=== PATIENT | male | born 1950 | race Caucasian/White ===

== ENCOUNTER 2017-04-01 08:19 | Outpatient (CLI) | payer MEDICARE ==
[2017-04-01] MEDS ORDERED: Iopamidol 250 51% 100 ML VIAL FS ONE (10:04)
--- NOTE | 2017-04-01 11:06 | CT ---
CONTRAST ENHANCED CT OF CHEST CONTRAST ENHANCED CT OF THE ABDOMEN AND PELVIS: History: Malignant neoplasm of kidney. Technique: Contrast enhanced CT images of the chest, abdomen, and pelvis performed. FINDINGS: The mediastinum is unremarkable. Sternotomy changes are seen. A prosthetic aortic valve was seen. There are three calcified granulomas in the right chest, one in the right upper lobe, one in the righ t middle lobe and a third calcified granuloma in the right lower lobe. There is also a noncalcified s oft tissue lesion seen in the right middle lobe seen on Image 30. Follow up CT in 3-4 months is recom mended to evaluate for interval change as unfortunately, the previous old CT images of the chest are not available. The left lung is well aerated. No evidence of mediastinal or hilar lymphadenopathy is seen. The liver, spleen, gallbladder and pancreas are unremarkable. Adrenal glands are unremarkable. The ri ght kidney is unremarkable. A small area of cortical thinning is seen in the lower pole of the left k idney possibly representing surgical resection of the left renal lesion. Correlate with surgical hist ory. Small surgical david are also seen in the left perirenal medial aspect region. Anterior incisi on is seen. Numerous descending sigmoid colon diverticula are noted. Small bowel is unremarkable. A normal appendix is seen. IMPRESSION: 1. Single soft tissue nodule in the right middle lobe of the lung. 2. Post-surgical changes seen adjacent to the left kidney. 3. Descending and sigmoid colonic diverticulosis. POS: [facility]
== END 2017-04-01 08:20 | disposition home or self-care (01) ==
LOC: CT 08:19
PROVIDERS: ATTEND Internal Medicine Hematology & Oncology
DX: C18.9 Malignant neoplasm of colon, unspecified (principal); C64.9 Malignant neoplasm of unspecified kidney, except renal pelvis; R91.1 Solitary pulmonary nodule; K57.30 Diverticulosis of large intestine without perforation or abscess without bleeding; Z98.890 Other specified postprocedural states
CPT/HCPCS: 71260; 74177

== ENCOUNTER 2017-06-21 08:49 | Outpatient (CLI) | payer MEDICARE ==
[~2017-06-21 08:49] MED LIST: Gadobenate Dimeglumine 529 MG/1 ML (20ML VIAL) ONE
--- NOTE | 2017-06-21 12:53 | MRI ---
MRI BRAIN WITH AND WITHOUT CONTRAST: HISTORY: Followup meningioma. COMPARISON: MRI brain, dated 05/27/2016. TECHNIQUE: Multiplanar, multisequential imaging of the brain obtained. Post contrast images obtained with the a dministration of 20 mL of MultiHance IV. FINDINGS: The ventricles remain normal in size and position. On the FLAIR sequence, there are a few scattered white matter hyperintensities, consistent with very mild chronic ischemic white matter change. These findings are stable from the prior study. No restricted diffusion. There is an extraaxial mass along the right convexity, at the location of the sylvian fissure. This mass exhibits low T2 signal and relatively isointense T1 signal. It shows diffuse enhancement. It i s unchanged in size and appearance. It continues to measure approximately 2.2 cm in AP dimension on the axial plane. It measures 2.5 cm craniocaudal on the coronal plane. These measurements are stabl e from the prior study. Cerebral arteries and basilar arteries show flow voids. The dural venous sinuses appear patent. There continue to be subcutaneous nodules, which were described previously, possibly representing mckenzie aceous cysts. These are stable. IMPRESSION: 1. Meningioma along the right convexity is stable in size and appearance. 2. Mild chronic ischemic white matter changes appear stable. POS: [facility]
== END 2017-06-21 08:50 | disposition home or self-care (01) ==
LOC: TBSIIMAG 08:49
PROVIDERS: ATTEND Surgery
DX: D32.0 Benign neoplasm of cerebral meninges (principal)
CPT/HCPCS: 70553; A9579

== ENCOUNTER 2017-08-06 08:38 | Outpatient (CLI) | payer MEDICARE ==
[2017-08-06] MEDS ORDERED: ISOVUE-370 76%-LOCM 1 ML ONE (16:24)
== END 2017-08-06 08:39 | disposition home or self-care (01) ==
LOC: BICCT 08:38
PROVIDERS: ATTEND Internal Medicine Hematology & Oncology
DX: Z08 Encounter for follow-up examination after completed treatment for malignant neoplasm (principal); Z85.038 Personal history of other malignant neoplasm of large intestine; Z85.528 Personal history of other malignant neoplasm of kidney; R91.1 Solitary pulmonary nodule; J84.10 Pulmonary fibrosis, unspecified; I89.8 Other specified noninfective disorders of lymphatic vessels and lymph nodes
CPT/HCPCS: 71260

== ENCOUNTER 2018-01-26 08:08 | Outpatient (CLI) | payer MEDICARE ==
--- NOTE | 2018-01-26 10:39 | CT ---
PRE AND POST CONTRAST ENHANCED CT IMAGES OF THE CHEST, ABDOMEN, AND PELVIS: Date: 01-26-18 Comparison: 04-01-17 Technique: Contrast enhanced CT images of the chest, abdomen, and pelvis were obtained. FINDINGS: Mediastinal surgical clips seen. Sternotomy wires noted. There is calcification seen in the aortic valve. No evidence of mediastinal lymphadenopathy seen. A calcified mediastinal lymph node is present. Calcified granuloma seen in the right middle lobe. There is a small soft tissue nodule in the right middle lobe measuring approximately 6 mm, unchanged since the previous comparison exam. The liver and spleen are unremarkable. The gallbladder and pancreas unremarkable. Adrenal glands unre markable. Surgical changes seen in the left kidney. No evidence of renal masses or lesions seen. No evidence of periaortic lymphadenopathy seen. Midline anterior abdominal wall surgical changes seen. The small bowel is unremarkable. A normal appendix is seen. Colonic diverticulosis is present without evidence of diverticulitis. No evidence of osseous lesions seen. IMPRESSION: 1. Post-surgical changes without definite evidence of metastatic disease seen. POS: [facility]
[2018-01-26] MEDS ORDERED: ISOVUE-370 76%-LOCM 1 ML ONE (12:46)
== END 2018-01-26 08:09 | disposition home or self-care (01) ==
LOC: BICCT 08:08
PROVIDERS: ATTEND Internal Medicine Hematology & Oncology
DX: C18.9 Malignant neoplasm of colon, unspecified (principal); C64.9 Malignant neoplasm of unspecified kidney, except renal pelvis; Z98.890 Other specified postprocedural states
CPT/HCPCS: 71260; 74177; 82565

== ENCOUNTER 2018-10-21 09:03 | Outpatient (CLI) | payer MEDICARE ==
[2018-10-21] MEDS ORDERED: ISOVUE-370 76%-LOCM 1 ML ONE (11:14)
--- NOTE | 2018-10-21 13:18 | CT ---
CT Chest Abd Pelvis W Con History: Colon and renal cancer. Comparison: CT chest abdomen pelvis January 2018 Findings: Calcified granuloma right upper lobe. Beneficial nodule along the right minor fissure measu res 6 cm, unchanged. Calcified granuloma right middle lobe. No suspicious pulmonary nodule. No effusion. No pneumothorax. No significant change in the left paratracheal lymph node measuring 6 mm short axis. No new adenopath y. Few calcified right peritracheal and subcarinal lymph nodes. No internal mammary nor axillary adenopathy. A few calcified granulomas of the spleen. Pancreas is un remarkable. Partial left inferior nephrectomy. No abnormal soft tissue nodularity to be suggests residual or recu rrent disease. No hydronephrosis. No abnormal renal enhancing mass. Extensive diverticular disease of the sigmoid colon without active current inflammation. Large midlin e scar. The transverse colon is somewhat lower in the abdomen than normal with the small bowel in the superior abdomen, likely chronic internal hernia from abdominal surgery. This has no clinical sig nificance. Liver, gallbladder, portal vein are all patent. Multiple midline sternotomy wires. Advanced facet arthrosis lower lumbar spine. No suspicious osteoly tic or osteoblastic lesions. Impression: No evidence for disease recurrence or metastasis.
== END 2018-10-21 09:04 | disposition home or self-care (01) ==
LOC: BICCT 09:03
PROVIDERS: ATTEND Internal Medicine Hematology & Oncology
DX: Z08 Encounter for follow-up examination after completed treatment for malignant neoplasm (principal); Z85.038 Personal history of other malignant neoplasm of large intestine; Z85.528 Personal history of other malignant neoplasm of kidney
CPT/HCPCS: 71260; 74177; 82565

== ENCOUNTER 2018-12-14 09:20 | Outpatient (CLI) | payer MEDICARE ==
--- NOTE | 2018-12-14 11:22 | MRI ---
MRI Brain W WO Con: 12/14/2018 12:00 AM CLINICAL HISTORY: Meningioma, follow-up. COMPARISON: 06/21/2017 FINDINGS: Extra axial spaces: Extra-axial mass is redemonstrated, described in further detail below. Acute infarction: None. Ventricular system: Normal in size and morphology for the patient's age. Basal cisterns: Normal. Cerebral parenchyma: Microvascular ischemic changes. Midline shift: None. Cerebellum: Normal. Brainstem: Normal. Paranasal sinuses:Scattered mucosal thickening, most pronounced within the sphenoid sinus. Mass: Stable enhancing extra-axial mass overlying the right convexity, 2.3 cm in diameter, which agai n demonstrates a broad dural base and a dural tail. Stable signal alteration posterior to the cerebellum, consistent with pacchionian granulation. There is also a stable, nonspecific small hyperintensity of the left temporal calvarium, stable. Cutaneous lesions of the scalp, bilaterally, are again demonstrated. IMPRESSION: Stable extra-axial mass overlying the right convexity, most consistent with meningioma. Transcribed Date/Time: 12/14/2018 11:32 AM
== END 2018-12-14 09:21 | disposition home or self-care (01) ==
LOC: TBSIIMAG 09:20
PROVIDERS: ATTEND Surgery
DX: D32.9 Benign neoplasm of meninges, unspecified (principal)
CPT/HCPCS: 70553; 82565

== ENCOUNTER 2019-03-07 09:05 | Outpatient (CLI) | payer MEDICARE ==
--- NOTE | 2019-03-07 11:48 | MRI ---
MRI RIGHT KNEE: Date: 03/07/19 PROVIDED CLINICAL HISTORY: Right knee pain. FINDINGS: The anterior cruciate ligament, posterior cruciate ligament, medial collateral ligament, and lateral collateral ligamentous complex demonstrate an intact MR appearance, as does the extensor mechanism. There is a near full thickness to full thickness radial tear involving the posterior horn of the medi al meniscus as it approaches the meniscal root. The lateral meniscus demonstrates no evidence for tea r. There is extensive full thickness articular cartilage loss involving the central weightbearing portio ns of the medial femorotibial joint. There is surface irregularity involving the patellar articular c artilage. There is a large knee joint effusion. No focal concerning regional marrow or muscular signal abnormality is evident. IMPRESSION: 1. Posterior root tear of the medial meniscus. 2. Advanced medial femorotibial articular chondrosis. 3. Large knee joint effusion. POS: [facility]
== END 2019-03-07 09:06 | disposition home or self-care (01) ==
LOC: BICMRI 09:05
PROVIDERS: ATTEND Family Medicine
DX: M25.461 Effusion, right knee (principal); S83.221A Peripheral tear of medial meniscus, current injury, right knee, initial encounter; M25.861 Other specified joint disorders, right knee

== ENCOUNTER 2019-05-05 08:35 | Outpatient (CLI) | payer MEDICARE ==
--- NOTE | 2019-05-05 11:34 | CT ---
EXAM: CT chest, abdomen, and pelvis with IV contrast: HISTORY: Colon cancer and renal cancer. Follow-up evaluation. COMPARISON: 10/21/2018 FINDINGS: CT THORAX: Lungs: Previously described 6 mm perifissural nodule along the right minor fissure is again seen and stable. Scattered calcified granulomata are again seen on the right. No additional parenchymal pulmonary nodule or mass is seen. Pleura: No pleural effusion. Lymph nodes: Calcified mediastinal and right hilar lymph nodes are seen related to prior granulomatou s disease. No enlarged lymph nodes are present. Mediastinum: . Postsurgical changes related to CABG and aortic valve replacement. Vascular calcificat ions are seen in the thoracic aorta. Chest wall: No abnormalities CT ABDOMEN AND PELVIS: Liver: Few punctate calcified granulomata are seen. No hepatic lesions are identified. Gallbladder: Within normal limits. \ Pancreas: Within normal limits. Spleen:Small splenic granulomata are again noted. Adrenal glands: Within normal limits. Kidneys: Few subcentimeter too small to characterize hypodense lesions are again seen in the right ki dney. Postsurgical changes inferior pole left kidney are again noted. Urinary Bladder: Mostly decompressed but otherwise grossly within normal limits. Reproductive organs: Within normal limits for patient's age. Bowel: There is extensive colonic diverticulosis greatest involving the descending and sigmoid colon. The cecum is in the midline of the abdomen with transverse colon positioned more lower than typically expected. These findings may be related to prior surgery. Loops of small bowel are normal i n caliber. Adenopathy:No lymphadenopathy within the abdomen or pelvis. Peritoneum: No free fluid or fluid collection is seen. No free intraperitoneal gas is identified. Abdominal wall: Midline surgical scar is seen in the subcutaneous soft tissues. Osseous structures: No suspicious lytic or sclerotic osseous lesions are identified. IMPRESSION: No CT evidence of metastatic disease.
[2019-05-05] MEDS ORDERED: Iopamidol-370 76% 500 ML 1 ML ONE (15:19)
== END 2019-05-05 08:36 | disposition home or self-care (01) ==
LOC: BICCT 08:35
PROVIDERS: ATTEND Internal Medicine Hematology & Oncology
DX: C64.9 Malignant neoplasm of unspecified kidney, except renal pelvis (principal); C18.9 Malignant neoplasm of colon, unspecified
CPT/HCPCS: 71260; 74177; 82565; Q9967

== ENCOUNTER 2019-10-17 09:14 | Outpatient (CLI) | payer MEDICARE ==
--- NOTE | 2019-10-17 10:16 | CT ---
CT OF THE CHEST, ABDOMEN AND PELVIS WITH IV CONTRAST INDICATION: History of colon cancer with metastatic lesion to the left kidney COMPARISON: CT of the chest, abdomen and pelvis dated May 05, 2009, October 21, 2018, January 26 and April 01, 2017. FINDINGS: CHEST: Lungs: The noncalcified pulmonary nodule measuring 6 mm, adjacent to the undersurface of the right mi nor fissure, within the right middle lobe, is stable. The scattered calcified granuloma are similar appearing. No new suspicious pulmonary nodule is evident. Pleural space: No effusion. Mediastinum: There are coronary artery and thoracic aortic calcifications. There are stable post-CABG change. There are calcified lymph nodes within the mediastinum and right hilar region. There is a loop recorder overlying left chest wall. Axilla: No pathologically enlarged lymph nodes. ABDOMEN: Liver: No suspicious focal hepatic lesion is evident. Gallbladder: Normal appearing. Pancreas: Normal. Adrenal glands: Normal. Spleen: Calcified granuloma in the spleen. Kidneys and ureters: There is stable postprocedural change of only for pole of the left kidney. No re current mass is evident. Right kidney is normal-appearing. Vasculature: There are mild vascular calcifications seen involving the visualized vasculature. Lymph nodes:No lymphadenopathy. Free fluid in abdomen:No free fluid is evident. PELVIS: Small and large bowel: There is postprocedural change of partial colectomy. There is colocolonic anas tomosis within the lower midline abdomen. There are scattered diverticula involving the colon. There is a normal appendix in the right lower quadrant of the abdomen. Small bowel is normal-appearin g. Appendix:Normal Bladder: Normal. Rectal and perirectal soft tissues:Normal. Reproductive structures: Normal. Free fluid in pelvis: No free fluid is evident. Lymphadenopathy pelvis: No lymphadenopathy is evident. Osseous structures: No acute osseous abnormality. No destructive osteolytic or osteoblastic lesion i s identified. There is scattered degenerative and osteoarthritic changes. Soft tissues:Normal. IMPRESSION: 1. No evidence of recurrent disease or metastatic disease.
[2019-10-17] MEDS ORDERED: Iopamidol-370 76% 500 ML 1 ML ONE (15:29)
== END 2019-10-17 09:15 | disposition home or self-care (01) ==
LOC: BICCT 09:14
PROVIDERS: ATTEND Internal Medicine Hematology & Oncology
DX: C18.9 Malignant neoplasm of colon, unspecified (principal); C64.9 Malignant neoplasm of unspecified kidney, except renal pelvis
CPT/HCPCS: 71260; 74177; 82565; Q9967

== ENCOUNTER 2020-04-05 09:15 | Outpatient (CLI) | payer MEDICARE ==
--- NOTE | 2020-04-05 11:17 | CT ---
EXAM: CT chest, abdomen, and pelvis with IV contrast: HISTORY: 6 month follow-up evaluation secondary to colon cancer. Malignant neoplasm of kidney. COMPARISON: 10/17/2019 FINDINGS: CT THORAX: Lungs: The pleural-based right middle lobe pulmonary nodule is again seen and unchanged in size measu ring 6 mm. This nodule is also unchanged compared to study in 2017. There has been interval development of a 5 mm right lower lobe pulmonary nodule located laterally near the right lateral cost ophrenic angle. No additional noncalcified pulmonary nodule is seen in the lungs bilaterally. There are scattered calcified granulomata again noted on the right. Pleura: No pleural effusion. Lymph nodes: There are calcified mediastinal and right hilar lymph nodes related to prior granulomato us disease. No enlarged mediastinal or hilar lymph nodes are seen. Mediastinum: Postoperative changes related to CABG are again noted. Metallic densities are seen at th e level of the aortic valve likely due to prior aortic valve replacement. Vascular calcifications are seen in the thoracic aorta. Chest wall: A metallic loop recording device is seen in the subcutaneous soft tissues anterior left c hest. CT ABDOMEN AND PELVIS: Liver: Calcified granuloma seen in the dome of the liver. Liver otherwise has a normal appearance and no focal lesion is seen in the liver. Gallbladder: Within normal limits. \ Pancreas: Within normal limits. Spleen:Splenic granulomata are visualized. Adrenal glands: Within normal limits. Kidneys: There is a low-density lesion seen in the inferior pole left kidney measuring 2.1 cm. This w as also present on the prior exam. This area was much smaller in size on study on PET/CT scan on 02/05/2016. This does not demonstrate an attenuation coefficient compatible with a simple cyst. This may represent a hyperdense cyst, but this is larger in size and previously measured approximately 1.1 cm. This may represent mild interval enlargement of a hyperdense renal cyst. However, follow-up M RI abdomen is recommended in 3-6 months for further evaluation and characterization. Postoperative changes inferior pole left kidney are again seen. A stable subcentimeter too small to characterize hy podense lesion is seen in the superior pole right kidney. Urinary Bladder: The urinary bladder is unremarkable. Reproductive organs: Within normal limits for patient's age. Vessels: Vascular calcifications seen in the abdominal aorta. Bowel: Partial colectomy is again noted with colonic colonic anastomosis in the lower midline of the abdomen. Colonic diverticulosis is present. Loops of small bowel are normal in caliber. Appendix is visualized and normal in caliber. Lymphadenopathy:No enlarged lymph nodes are seen in the abdomen or pelvis by CT size criteria. Peritoneum: No free fluid or fluid collection is seen. No free intraperitoneal gas is identified. Abdominal wall: Midline scarring is again present in the anterior abdominal wall. Osseous structures: Few Schmorl's nodes are seen within the upper lumbar vertebral bodies. Degenerati ve changes are seen in the spine. No suspicious lytic or sclerotic osseous lesions are identified. IMPRESSION: 1. Interval development of a 5 mm right lower lobe pulmonary nodule. Short interval follow-up examina tion in 4-6 months is recommended. 2. Hypodense lesion in the inferior pole left kidney which is larger in size compared to prior PET/CT scan in 2016. This lesion demonstrated increased density on that exam. This may represent enlargement of a Bosniak type II renal cystic lesion, but follow-up MRI in 3-6 months is recommended for further characterization and evaluation. 3. No evidence of lymphadenopathy in the chest, abdomen, or pelvis. 4. Additional findings as described above.
[2020-04-05] MEDS ORDERED: Iopamidol-370 76% 500 ML 1 ML ONE (13:19)
== END 2020-04-05 09:16 | disposition home or self-care (01) ==
LOC: BICCT 09:15
PROVIDERS: ATTEND Internal Medicine Hematology & Oncology
DX: C18.9 Malignant neoplasm of colon, unspecified (principal); C64.9 Malignant neoplasm of unspecified kidney, except renal pelvis; R91.1 Solitary pulmonary nodule; N28.9 Disorder of kidney and ureter, unspecified
CPT/HCPCS: 36415; 71260; 74177; 82378; 82565; Q9967

== ENCOUNTER 2020-07-31 09:33 | Outpatient (CLI) | payer MEDICARE | END 2020-07-31 09:34 | disposition home or self-care (01) | LOC: TBSIIMAG 09:33 | PROVIDERS: ATTEND Surgery | DX: D33.2 Benign neoplasm of brain, unspecified (principal); I67.82 Cerebral ischemia; R22.0 Localized swelling, mass and lump, head; G93.9 Disorder of brain, unspecified; Z85.038 Personal history of other malignant neoplasm of large intestine; Z85.53 Personal history of malignant neoplasm of renal pelvis | CPT/HCPCS: 70553 ==

== ENCOUNTER 2020-08-12 15:16 | Outpatient (CLI) | payer MEDICARE ==
[2020-08-12 18:32] LABS: Hemoglobin 13.5 g/dL (13.5-17.5); Mean Corpuscular HGB CONC 33.9 g/dL (32.0-36.0); Mean Corpuscular Hemoglobin 29.8 pg (27.0-33.0); Mean Corpuscular Volume 87.9 fl (81.2-95.1); Mean Platelet Volume 12.6 fl (7.4-10.4); Platelet Count 185 10x3/uL (150-450); RBC Distribution Width 13.2 % (11.5-14.5); Red Blood Cell (RBC) Count 4.53 10x6/uL (4.32-5.72)
[2020-08-12 18:43] LABS: PTT 26.1 sec (22.0-33.0); Prothrombin Time 10.9 sec (9.5-12.1)
[2020-08-12 19:09] LABS: Anion Gap 15 mmol/L (10-20); BUN (Urea Nitrogen) 13 mg/dL (8.4-25.7); Calc. Creatinine Clearance 0 mL/min (70-130); Calcium 9.5 mg/dL (7.8-10.44); Carbon Dioxide 26 mmol/L (23-31); Chloride 101 mmol/L (98-107); Glucose 178 mg/dL (80-115); Potassium 3.6 mmol/L (3.5-5.1); Sodium 138 mmol/L (136-145)
[2020-08-13 06:59] LABS: SARS-CoV-2 PCR by NAA Not Detected (NotDetected)
== END 2020-08-12 15:17 | disposition home or self-care (01) ==
LOC: LABBT 15:16
PROVIDERS: ATTEND Surgery
DX: Z01.818 Encounter for other preprocedural examination (principal); M89.9 Disorder of bone, unspecified; Z20.822 Contact with and (suspected) exposure to COVID-19
CPT/HCPCS: 80048; 85027; 85610; 85730; U0003; U0005; 87635; 93005; 93010

== ENCOUNTER 2020-08-12 15:30 | Inpatient (IN) | payer MEDICARE ==
[2020-08-14 10:22] VITALS: BMI 31.8
[2020-08-15] MEDS ORDERED: Fentanyl 100 MCG/2 ML VIAL ONE ×2 (06:46→09:54)
[2020-08-15] MEDS ORDERED: Thrombin 5000 UNITS/5 ML VIAL ONE (07:07)
[2020-08-15] MEDS ORDERED: Bacitracin Zinc Ointment 30 gm TUBE ONE (07:07)
[2020-08-15] MEDS ORDERED: Lidocaine 1% PF 5 ML VIAL ONE (07:42)
[2020-08-15] MEDS ORDERED: PROPOFOL 200 MG/20 ML VIAL ONE (07:42)
[2020-08-15] MEDS ORDERED: Dexamethasone 20 MG/5 ML VIAL ONE (07:42)
[2020-08-15] MEDS ORDERED: ePHEDrine Sulfate 50 MG/10 ML VIAL ONE (07:42)
[2020-08-15] MEDS ORDERED: Ondansetron PF 4 MG/2 ML Vial ONE (07:42)
[2020-08-15] MEDS ORDERED: PHENYLEPHRINE-NS 100 MCG/ML 10 ML SYRINGE ONE (07:42)
[2020-08-15] MEDS ORDERED: Rocuronium Bromide 10 MG/ML (10ML VIAL) ONE (07:42)
[2020-08-15] MEDS ORDERED: Glycopyrrolate 0.2 MG/ML 5 ML SYRINGE ONE (07:42)
[2020-08-15] MEDS ORDERED: hydrALAZINE 20 MG/ML VIAL SLOW IVP PRN (09:43)
[2020-08-15] MEDS ORDERED: Ondansetron PF 4 MG/2 ML Vial IVP PRN (09:43)
[2020-08-15] MEDS ORDERED: Acetaminophen 325 MG TAB PO PRN (09:43)
[2020-08-15] MEDS ORDERED: Morphine 2 MG/ML VIAL SLOW IVP PRN (09:43)
[2020-08-15] MEDS ORDERED: Acetaminophen/Codeine 30-300mg Tablet PO PRN (09:50)
[2020-08-15] MEDS ORDERED: traMADol HCl 50 MG TAB PO PRN (09:50)
[2020-08-15] MEDS ORDERED: Promethazine HCl 25 MG/ML VIAL IM PRN (09:51)
[2020-08-15] MEDS ORDERED: Mag-Al 1200 mg/1200 mg/30 ML UDCUP PO PRN (09:51)
[2020-08-15] MEDS ORDERED: Promethazine HCl 25 MG/ML VIAL SLOW IVP PRN (09:56)
[2020-08-15] MEDS ORDERED: Ondansetron HCl/PF 4 MG/2 ML Vial IVP PRN (09:56)
[2020-08-15] MEDS: CEFAZOLIN 2 GM in Premix Bag 1 BAG IVPB SCH ×2 (14:32→21:20)
[2020-08-15] MEDS: HYDROcodone/Acetaminophen 7.5/325 mg Tablet PO PRN (14:32)
[2020-08-15] MEDS: Sodium Chloride 0.9% 1,000 ML IV SCH (15:46)
[2020-08-15] MEDS: metFORMIN 500 MG TAB PO SCH (17:16)
[2020-08-15] MEDS ORDERED: Cepastat Lozenges 1 LOZ PO PRN (18:39)
[2020-08-15] MEDS ORDERED: Amlodipine 5 MG TAB PO SCH (21:00)
[2020-08-15] MEDS ORDERED: Atorvastatin Calcium 40 MG TAB PO SCH (21:00)
[2020-08-15] MEDS: Carvedilol 25 MG TAB PO SCH (21:20)
[2020-08-16 03:45] VITALS: TEMP 97.8
[2020-08-16] MEDS: CEFAZOLIN 2 GM in Premix Bag 1 BAG IVPB SCH (05:21)
[2020-08-16] MEDS ORDERED: Levothyroxine Sodium 125 MCG TAB PO SCH (06:00)
[2020-08-16] MEDS: Sodium Chloride 0.9% 1,000 ML IV SCH (06:49)
[2020-08-16 08:00] VITALS: BP 158/91
[2020-08-16] MEDS: HYDROcodone/Acetaminophen 7.5/325 mg Tablet PO PRN (08:04)
[2020-08-16] MEDS: metFORMIN 500 MG TAB PO SCH (08:04)
[2020-08-16] MEDS: Carvedilol 25 MG TAB PO SCH (08:04)
== END 2020-08-16 13:14 | disposition home or self-care (01) | DRG 517 ==
LOC: SURG A 08-15 05:51 → SJJU 08-15 11:38 → EDSTATUS 08-15 15:30
PROVIDERS: ADMIT Surgery; ATTEND Surgery
PROC: 0NT Head and Facial Bones, Resection (ICD-10-PCS; principal; 2020-08-15)
PROC: 0NR Head and Facial Bones, Replacement (ICD-10-PCS; 2020-08-15)
DX: M89.9 Disorder of bone, unspecified (principal); Z85.528 Personal history of other malignant neoplasm of kidney; Z85.038 Personal history of other malignant neoplasm of large intestine
CPT/HCPCS: 88307; 88311; 88342; C1713; C1781; J0690; J1100; J2405; J2704; J3010; J3370

== ENCOUNTER 2020-12-09 13:31 | Outpatient (CLI) | payer MEDICARE ==
[~2020-12-09 13:31] MED LIST changes: -Gadobenate Dimeglumine 529 MG/1 ML (20ML VIAL) ONE; +Magnevist 469MG/ML 20 ML VIAL ONE
== END 2020-12-09 13:32 | disposition home or self-care (01) ==
LOC: TBSIIMAG 13:31
PROVIDERS: ATTEND Surgery
DX: D33.2 Benign neoplasm of brain, unspecified (principal); R22.0 Localized swelling, mass and lump, head
CPT/HCPCS: 70553; 82565; A9579

== ENCOUNTER 2022-09-16 13:46 | Outpatient (CLI) | payer MEDICARE | END 2022-09-16 13:47 | disposition home or self-care (01) | LOC: TBSIIMAG 13:46 | PROVIDERS: ATTEND Surgery | DX: D32.0 Benign neoplasm of cerebral meninges (principal); R41.3 Other amnesia | CPT/HCPCS: 36415; 70553; 82607; 82746; 83090; 83921; 84425; 84443; A9579 ==